=== PATIENT | male | born 1980 ===

== ENCOUNTER 2016-07-14 19:33 | Emergency (ER) | payer OTHER ==
[2016-07-14 20:01] VITALS: RESP 16; TEMP 99.5
--- NOTE | 2016-07-14 20:14 | UCPHY ---
H & P Time Seen by Provider: 07/14/16 20:13 Patient Type: New HPI/ROS: CHIEF COMPLAINT: Cough HISTORY OF PRESENT ILLNESS: The patient is a 36 year old male presenting with cough that has been ongoing for the past 6 weeks. The cough started out as a dry cough and is now productive, sometimes. He reports a few times waking up with sweats over the past month, but not nightly. No hemoptysis. Last night he felt febrile, though he did not take his temperature. He notes congestion and ear congestion that started this past week. The patient is able to sleep at night despite symptoms. He states he has occasional allergies. No nausea or diarrhea. Cough does not keep him awake nor does he have pain in the ribs from coughing excessively. REVIEW OF SYSTEMS: Constitutional: See above. Eyes: No discharge. ENT: No sore throat. No sinus pressure when he leans forward Cardiovascular: No chest pain, no palpitations. Respiratory: Some wheezing. No shortness of breath Gastrointestinal: No nausea vomiting or diarrhea. No abdominal pain. Genitourinary: No back pain Musculoskeletal: No back pain. Skin: No rashes. Neurological: No headache. 10 point ROS otherwise negative Past Medical/Surgical History: Denies. Social History: Former smoker. No recent alcohol. Smoking Status: Former smoker Physical Exam: General Appearance: Alert, no distress. Afebrile. Normal phonation. No respiratory distress. Eyes: Pupils equal and round no pallor or injection. No icterus ENT, Mouth: Mucous membranes moist. Pharynx without erythema or exudate. TM Clear. Neck: No adenopathy. Supple. No JVD. Trachea in midline. Respiratory: Bilateral wheezing, at bases with some decreased air entry Cardiovascular: Regular rate and rhythm, no murmur Skin: Warm and dry, no rashes. Musculoskeletal: No joint swelling. Extremities: No edema. Psychiatric: Normal affect. Constitutional: Initial Vital Signs Temperature (C) 37.5 C 07/14/16 19:55 Heart Rate 80 07/14/16 19:55 Respiratory Rate 16 07/14/16 19:55 Blood Pressure 117/81 H 07/14/16 19:55 O2 Sat (%) 96 07/14/16 19:55 O2 Delivery Mode Room Air Allergies/Adverse Reactions: amoxicillin Allergy (Verified 07/14/16 20:00) Home Medications: Medication Instructions Recorded Albuterol [Proventil Inhaler HFA 2 puffs IH QID #1 mdi 07/14/16 (*)] Omeprazole 07/14/16 predniSONE [Prednisone] 30 mg PO BID #42 tablet 07/14/16 Medical Decision Making - Diagnostics Imaging: Chest x-ray. Interpreted by me contemporaneously. Two-view chest. Hyperinflation. No pneumonia. Normal heart. ED Course/Re-evaluation: The patient is a healthy 36 year old who presents with ongoing cough for the past 6 weeks. Cough is productive in nature. Over the past month the patient has developed associated congestion and ear pressure. On exam the patietn has bilateral wheezes at both bases. Plan for chest x-ray to rule out pneumonia. I viewed the X-ray of the chest myself on the PACS system. My interpretation is hyperinflation, consistent with asthma. Please see the full radiology report in the imaging section. I met with the patient outlining the treatment plan prednisone with albuterol inhaler to expedite his recovery. Whereas plan was given additional doses tonight he declined - though he did take the prescriptions as written. Differential Diagnosis: Diagnostic considerations include, but are not limited to, the following: URI, sinusitis, pharyngitis, otitis media, pneumonia, allergy, influenza, asthmatic bronchitis. Departure - Departure Disposition: Home, Routine, Self-Care Clinical Impression: Acute asthmatic bronchitis Condition: Good Instructions: Bronchospasm (ED), Wheezing (ED) Additional Instructions: Take full course of prednisone. Use the inhaler as directed to help suppress your cough: 2 puffs 4 times daily for 2 weeks. Referrals: Asya Yun MD [Medical Doctor] - As per Instructions Prescriptions: Albuterol [Proventil Inhaler HFA (*)] 2 puffs IH QID #1 mdi predniSONE [Prednisone] 30 mg PO BID #42 tablet - PQRS PQRS Measurement: Not applicable Report Scribed for: Chris Lopez Report Scribed by: Tita Martin Date of Report: 07/14/16 Time of Report: 20:19
[2016-07-14] MEDS ORDERED: ALBUTEROL INH PREPACK MDI TAKEHOME ONE (21:15)
[2016-07-14] MEDS ORDERED: predniSONE 20 MG TAB PO ONE (21:15)
[2016-07-14 21:42] VITALS: BP 116/83; PULSE 76; O2SAT 94
== END 2016-07-14 21:35 | disposition home or self-care (01) ==
LOC: CED 19:33
DX: J45.909 Unspecified asthma, uncomplicated (principal); J20.9 Acute bronchitis, unspecified; Z87.891 Personal history of nicotine dependence
CPT/HCPCS: 71020-PO; G0463-PO